=== PATIENT | female | born 2000 | race Caucasian/White ===

== ENCOUNTER → 2022-12-03 | Outpatient (CLI) | payer OTHER ==
[~2022-12-03] MED LIST: CATHETER FLUSH 10 ML SYR IV PRN; HOLD METFORMIN - RECEIVED CONTRAST 20 ML VIAL IV SCH; IOHEXOL 350 MG/ML 100 ML (OMNIPAQUE 350) VIAL IV ONE; NS 100 ML (IVPB) BAG IV ONE
--- NOTE | 2022-12-03 08:50 | Diagnostic Imaging Report ---
PROCEDURE: CT abdomen and pelvis with contrast. TECHNIQUE: Multiple contiguous axial images were obtained through the abdomen and pelvis after administration of intravenous contrast. Auto Exposure Controls were utilized during the CT exam to meet ALARA standards for radiation dose reduction. All CT scans use one or more of the following dose optimizing techniques: automated exposure control, MA and/or KvP adjustment based on patient size and exam type or iterative reconstruction. INDICATION: Diarrhea and blood in stool in patient with abdominal distention and increasing abdominal girth. No focal hepatic, gallbladder, pancreatic, adrenal gland or splenic abnormalities identified. Kidneys are unremarkable. There is no evidence of free fluid. No evidence of bowel obstruction. There is moderate amount of colonic stool most pronounced in the right colon and sigmoid colon regions. There may be mild mural thickening present at the rectum. IMPRESSION: Moderate colonic stool content. Sigmoid colon is taut with stool and may contribute to patient's symptoms. In addition, mural prominence of the rectum is suggestive of a component of proctitis. Dictated by: Dictated on workstation # [id number]
== END ==
LOC: RAD 08:01
PROVIDERS: ATTEND Internal Medicine
DX: R14.0 Abdominal distension (gaseous) (principal); R19.5 Other fecal abnormalities
CPT/HCPCS: 74177